=== PATIENT | male | born 1985 | race Caucasian/White ===

== ENCOUNTER 2016-12-12 18:10 | Emergency (ER) | payer MEDICAID ==
[~2016-12-12] VITALS: Ht 147.3 cm; Wt 49.9 kg
[~2016-12-12 18:10] MED LIST: AMOXICILLIN PEG; AMOXICILLIN PO; AMPICILLIN1 GM IV; AUGMENTIN 400 M50 ML PO; AUGMENTIN 875875 MG PEG; BACITRACIN 500U30 GM OPH; CEFTRIAXON2 GM/50 ML IV; DOXYCYCLINE HY100 M5 PO; DUONEB 3 MG/3 ML3 M1 NEB; FAMOTIDINE20 MG PO; FIBERSOURCE H1000 ML PEG; FLUCONAZOL GT; GLUCTESTSTRIP MC; INSULIN PEN NE1 EAC1 MC; JEVITY PEG; KEFLEX250 MG/5 M PO; LOPRESSOR50 M1 PEG; LOPRESSOR50 MG PO; NKHM; NOVOLOG FLEX100 U/ML SC; NYSTATIN 1 ML1 ML PEG; PROTONIX20 MG IV; TYLENOL 10320 MG/10 PEG; TYLENOL160 MG/5 M; VANCOMYCIN HYD750 MG IV; VENTOLIN 02.5 MG/3 M INH; ZINC OXIDE OINT1 OZ T; [UNRECOGNIZED DRUG - OTHER] PO; [UNRECOGNIZED DRUG - SUPPLY] MC
[2016-12-12 19:04] LABS: BASO % 0.5 % (0.0-1.0); EOS # 0.1 10*3/uL (0.0-0.4); EOS % 1.1 % (1.0-4.0); HEMATOCRIT 46.8 % (42.0-52.0); HEMOGLOBIN 15.1 g/dl (14.0-18.0); LYMPH # 3.2 10*3/uL (1.3-4.4); LYMPH % 36.5 % (27.0-41.0); MEAN CELL VOLUME 87.2 fl (80.0-94.0); MEAN CORPUSCULAR HGB 28.1 pg (27.0-31.0); MEAN CORPUSCULAR HGB CONC 32.3 g/dl (33.0-37.0); MEAN PLATELET VOLUME 9.8 fl (9.6-12.3); MONO # 0.8 10*3/uL (0.1-1.0); MONO % 9.3 % (3.0-9.0); NEUT # 4.6 10*3/uL (2.3-7.9); NEUT % 52.3 % (47.0-73.0); PLATELET COUNT AUTOMATED 325 10*3/uL (130-400); RED BLOOD COUNT 5.37 10*6/uL (4.50-5.90); WHITE BLOOD COUNT 8.7 10*3/uL (4.8-10.8)
[2016-12-12 19:07] VITALS: BP 136/76
[2016-12-12 19:25] LABS: ALBUMIN 4.4 gm/dl (3.1-4.5); ALKALINE PHOSPHATASE 161 U/L (45-117); BILIRUBIN, TOTAL 0.5 mg/dl (0.2-1.0); BUN 15 mg/dl (7-24); CARBON DIOXIDE 31 mmol/L (21-32); CHLORIDE 99 mmol/L (98-107); EST GLOM FILT AFRICAN AMERICAN > 60 ml/min; GLUCOSE 81 mg/dL (65-99); POTASSIUM 3.9 mmol/L (3.5-5.1); SGOT/AST 28 IU/L (3-35); SGPT/ALT 48 U/L (12-78); SODIUM 139 mmol/L (136-145); TOTAL PROTEIN 9.7 gm/dL (6.4-8.2)
[2016-12-12] MEDS ORDERED: BACTROBAN CREAM15 GM PO (20:35)
[2016-12-12] MEDS ORDERED: KENALOG 0.025%15 GM T (20:35)
== END 2016-12-12 20:47 | disposition home or self-care (01) ==
LOC: ED 18:10
PROVIDERS: Physician Assistant
DX: Z43.1 Encounter for attention to gastrostomy (principal)

== ENCOUNTER 2017-01-31 16:10 | Inpatient (IN) | payer MEDICAID ==
[~2017-01-31] VITALS: Ht 134.6 cm; Wt 34.6 kg
--- NOTE | ~2017-01-31 | CON ---
[place], [place] REPORT OF CONSULTATION NAME: DAJA MOORE JR [facility] #: [id number] UNIT #: [id number] ROOM: 501 DOCTOR: ANDRE CARRERA MD BIRTHDATE: [birth year] DOS: HISTORY OF PRESENT ILLNESS: This is a 31-year-old patient who presented with multiple readmissions and dependency on the PEG tube. Apparently, his PEG tube has been malfunctioned and leaking and non-infusing and I have been asked for assessment of the above. The patient was admitted through the Emergency Room. A panel of blood work was done and no acute pathology was found. White blood cell was 9, H and H was 15 and 49. Differential within normal limit. Comprehensive metabolic panel, liver function test normal. Electrolytes balanced. CBC differential, no compromise. His B12 was normal. Alkaline phosphatase is slightly elevated at 172. PAST MEDICAL HISTORY: History of advanced cerebral palsy, neurogenic dysphagia, PEG tube dependency, status post previous PEG, status post malfunctioning PEG and repeated exchange. Past medical history associated with diabetes mellitus, , fatty liver, hypertension, bedridden, quadriplegic, positioned. PAST SURGICAL HISTORY: Status post esophageal surgery, details not known; PEG tube; history of podiatric surgeries. SOCIAL HISTORY: Nonsmoker, nonalcohol consumer. FAMILY HISTORY: Noncontributory. ALLERGIES: No known. MEDICATIONS: Medication list reviewed. REVIEW OF SYSTEMS: Cannot be obtained from him due to the cognitive incapability. PHYSICAL EXAMINATION: GENERAL: positioned in general with general waste of musculoskeleton status, lots of muscle wasting. HEENT: Otherwise unremarkable for dental hygiene. NECK: Supple. No thyromegaly. CHEST: Symmetric anatomy, kyphotic. HEART: Normal sinus rhythm. No gallop, no murmur. ABDOMEN: Soft, flat and PEG tube is displaced. Bowel sounds present. EXTREMITIES: Flexed and muscle wasting in thigh and calf and in general entire body is noticed. NEUROLOGIC: Alert and disoriented. LABORATORY DATA: Labs reviewed. Records reviewed at this stage. IMPRESSION: Malfunctioning PEG tube, cerebral palsy, neurogenic dysphagia, bedridden status, otherwise as identified in paragraph past medical and surgical history. At this stage, anterior abdominal wall aseptically was prepared. Existing PEG tube was deflated and removed and a HIRAL 2, size 22 was introduced into the existing ostomy inflated and secured and the patient tolerated the [place], [place] REPORT OF CONSULTATION NAME: DAJA MOORE JR [place] UNIT #: [id number] ROOM: [facility] DOCTOR: DEBI GARRETT,ANDRE BIRTHDATE: [birth year] procedure well, ready for utilization for medications and feedings. ANDRE CARRERA MD CM:CONSTR:REPORT OF CONSULTATION 1135 02/02/17 0046 interface
[~2017-01-31 16:10] MED LIST changes: +BACTROBAN CREAM15 GM PO; +KENALOG 0.025%15 GM T
[2017-01-31 16:25] VITALS: BP 118/60
[2017-01-31 17:40] LABS: BASO % 0.2 % (0.0-1.0); EOS # 0.1 10*3/uL (0.0-0.4); EOS % 0.6 % (1.0-4.0); HEMATOCRIT 49.5 % (42.0-52.0); HEMOGLOBIN 15.9 g/dl (14.0-18.0); LYMPH # 2.2 10*3/uL (1.3-4.4); LYMPH % 23.6 % (27.0-41.0); MEAN CELL VOLUME 88.2 fl (80.0-94.0); MEAN CORPUSCULAR HGB 28.3 pg (27.0-31.0); MEAN CORPUSCULAR HGB CONC 32.1 g/dl (33.0-37.0); MEAN PLATELET VOLUME 9.7 fl (9.6-12.3); MONO # 0.8 10*3/uL (0.1-1.0); MONO % 8.5 % (3.0-9.0); NEUT # 6.3 10*3/uL (2.3-7.9); NEUT % 66.9 % (47.0-73.0); PLATELET COUNT AUTOMATED 297 10*3/uL (130-400); RED BLOOD COUNT 5.61 10*6/uL (4.50-5.90); RED CELL DISTRI WIDTH 15.4 % (0-14.5); WHITE BLOOD COUNT 9.4 10*3/uL (4.8-10.8)
[2017-01-31 17:57] LABS: ALBUMIN 4.6 gm/dl (3.1-4.5); ALKALINE PHOSPHATASE 170 U/L (45-117); BILIRUBIN, TOTAL 0.7 mg/dl (0.2-1.0); BUN 16 mg/dl (7-24); CARBON DIOXIDE 31 mmol/L (21-32); CHLORIDE 101 mmol/L (98-107); EST GLOM FILT AFRICAN AMERICAN > 60 ml/min; GLUCOSE 80 mg/dL (65-99); POTASSIUM 3.9 mmol/L (3.5-5.1); SGOT/AST 30 IU/L (3-35); SGPT/ALT 54 U/L (12-78); SODIUM 139 mmol/L (136-145); TOTAL PROTEIN 9.9 gm/dL (6.4-8.2)
[2017-01-31 20:00] VITALS: BP 130/87
[2017-01-31 20:25] VITALS: BP 130/87
[2017-02-01] VITALS: BP 119/61
[2017-02-01 07:09] LABS: BASO % 0.5 % (0.0-1.0); EOS % 0.3 % (1.0-4.0); HEMATOCRIT 47.6 % (42.0-52.0); HEMOGLOBIN 15.6 g/dl (14.0-18.0); LYMPH # 2.1 10*3/uL (1.3-4.4); LYMPH % 33.3 % (27.0-41.0); MEAN CORPUSCULAR HGB 28.8 pg (27.0-31.0); MEAN CORPUSCULAR HGB CONC 32.8 g/dl (33.0-37.0); MONO # 0.5 10*3/uL (0.1-1.0); MONO % 7.1 % (3.0-9.0); NEUT # 3.7 10*3/uL (2.3-7.9); NEUT % 58.6 % (47.0-73.0); PLATELET COUNT AUTOMATED 303 10*3/uL (130-400); RED BLOOD COUNT 5.41 10*6/uL (4.50-5.90); RED CELL DISTRI WIDTH 15.8 % (0-14.5); WHITE BLOOD COUNT 6.3 10*3/uL (4.8-10.8)
[2017-02-01 07:27] LABS: PROTHROMBIN TIME 10.7 SECONDS (9.0-12.4)
[2017-02-01 07:33] LABS: ALBUMIN 4.5 gm/dl (3.1-4.5); ALKALINE PHOSPHATASE 172 U/L (45-117); BILIRUBIN, TOTAL 0.9 mg/dl (0.2-1.0); BUN 16 mg/dl (7-24); CARBON DIOXIDE 28 mmol/L (21-32); CHLORIDE 102 mmol/L (98-107); EST GLOM FILT AFRICAN AMERICAN > 60 ml/min; GLUCOSE 86 mg/dL (65-99); MAGNESIUM 2.6 mg/dL (1.5-2.1); PHOSPHOROUS 3.2 mg/dL (2.5-4.9); POTASSIUM 3.9 mmol/L (3.5-5.1); SGOT/AST 33 IU/L (3-35); SGPT/ALT 57 U/L (12-78); SODIUM 141 mmol/L (136-145); TOTAL PROTEIN 9.9 gm/dL (6.4-8.2)
[2017-02-01 08:00] VITALS: BP 121/74
[2017-02-01 08:24] LABS: FOLIC ACID > 24.00 ng/mL (>5.38)
[2017-02-01 08:46] LABS: VITAMIN D, 25-HYDROXY 24.7 ng/mL (30-100)
[2017-02-01] MEDS ORDERED: Lopressor25 MG PO (10:12)
[2017-02-01] MEDS ORDERED: PEPCID20 MG PO (10:12)
[2017-02-01 10:57] VITALS: BP 132/94
[2017-02-01 12:00] VITALS: BP 133/86
[2017-02-01] MEDS ORDERED: VITAMIN D1000 IU PEG (14:09)
== END 2017-02-01 15:09 | disposition home health service (06) | DRG 395 ==
LOC: ED 16:10 → 5E 17:51 → EDHOLD 17:51 → 5E 18:33
PROVIDERS: Internal Medicine; Nurse Practitioner Family
PROC: 0D20XUZ Change Feeding Device in Upper Intestinal Tract, External Approach (ICD-10-PCS; principal; 2017-01-31)
DX: K94.23 Gastrostomy malfunction (principal); E10.8 Type 1 diabetes mellitus with unspecified complications; G80.8 Other cerebral palsy; K21.9 Gastro-esophageal reflux disease without esophagitis; I10 Essential (primary) hypertension; E55.9 Vitamin D deficiency, unspecified; R13.19 Other dysphagia; Z79.899 Other long term (current) drug therapy

== ENCOUNTER → 2017-07-28 | Day surgery (SDC) | payer MEDICAID ==
[~2017-07-28] VITALS: Wt 36.3 kg
[~2017-07-28] MED LIST changes: +Lopressor25 MG PO; +NOVOLOG FL100 UNIT/1 SQ; +PEPCID20 MG PO; +VITAMIN D1000 IU PEG
--- NOTE | ~2017-07-28 | CON ---
[place], [place] REPORT OF CONSULTATION NAME: DAJA MOORE JR [facility] #: [id number] UNIT #: [id number] ROOM: DOCTOR: ANDRE CARRERA MD BIRTHDATE: [birth year] DOS: 07/28/2017 HISTORY OF PRESENT ILLNESS: This is a 31-year-old old patient who has presented for malfunctioning and broken PEG tube. The patient known with quadriplegia, bedridden and mental retardation. The patient has been taken care of by family at home. The patient with advanced cerebral palsy. The patient is dependent on his feeding tube and requires exchange of the tube. PAST MEDICAL HISTORY: Advanced cerebral palsy, dextroscoliosis, diabetes mellitus, cholelithiasis, cellulitis of the anterior abdominal wall, fatty liver of nonalcoholic type, hypertension, history of meningitis, quadriplegia. PAST SURGICAL HISTORY: Gastrostomy and multiple other surgeries, lower back surgeries and spine surgeries, leg surgeries. SOCIAL HISTORY: Nonsmoker, nonalcohol consumer. FAMILY HISTORY: Supportive family. ALLERGIES: To no known medications. MEDICATIONS: Medication list has been reviewed. REVIEW OF SYSTEMS: Cannot be obtained from the patient due to the cognitive incapability. PHYSICAL EXAMINATION: GENERAL: Deformed musculoskeletal status. HEENT: Benign for his age and category of the disease. Mouth dry. NECK: Supple. LUNGS: Decreased airway entry bilaterally. No wheeze. HEART: Normal sinus rhythm, no gallop, no murmur. CHEST: Entirely is deformed with scoliosis. ABDOMEN: Protuberant due to the anatomical variation. Cellulitis, abdominal wall was identified. A malfunctioning PEG tube was identified. EXTREMITIES: Deformed extremities, upper and lower and musculoskeletal deformity in addition to muscle wasting, bedridden status. NEUROLOGIC: Appears to be alert, not oriented. Broken malfunctioning PEG tube at this stage, anterior abdominal wall was aseptically prepped and existing tube was percutaneously removed and HIRAL size 22 was introduced in the same ostomy site, inflated with 15 mL of normal saline and position was verified clinically, anchors from outside secured, additional straps were added and case discussed with the mother. Then the site was dressed with Neosporin ointment. The patient tolerated procedure well. IMPRESSION: Malfunctioning PEG tube, status post removal and replacement; cerebral palsy of advanced degree; bedridden; deformed musculoskeletal status; and other adjunctive diagnoses as identified above. [place], [place] REPORT OF CONSULTATION NAME: DAJA MOORE JR UNIT #: [id number] ROOM: DOCTOR: DEBI GARRETT,ANDRE BIRTHDATE: [birth year] PLAN AND DISCUSSION: Resumption of utilization of new PEG tube for meds and food feeding. ANDRE CARRERA MD CM:CONSTR:REPORT OF CONSULTATION 1009 07/29/17 0318 interface
--- NOTE | 2017-07-28 10:10 | NUR ---
PATIENT PRESENTED TO OPS DR CARRERA AND MOTHER AT BEDSIDE. MALFUNCTIONING PEG TUBE NOTED CONSENT SIGNSED AND INFORMED TO MOTHER BY Catarina CARRERA. PATIENT PREPPED WITH BETADINE AND TUBE EXTRACTED. EXCHANGE COMPLETED. TOLERATED WELL.
== END | disposition home or self-care (01) ==
LOC: SDC 07-27 13:15
DX: K94.23 Gastrostomy malfunction (principal); F79 Unspecified intellectual disabilities; G80.8 Other cerebral palsy; E11.9 Type 2 diabetes mellitus without complications; K21.9 Gastro-esophageal reflux disease without esophagitis; I10 Essential (primary) hypertension; Z98.890 Other specified postprocedural states; Z79.899 Other long term (current) drug therapy; Z79.4 Long term (current) use of insulin

== ENCOUNTER 2017-08-24 14:56 | Emergency (ER) | payer MEDICAID ==
[2017-08-24 14:56] VITALS: BP 102/79
== END 2017-08-24 15:44 | disposition home or self-care (01) ==
LOC: ED 14:56
DX: T81.89XA Other complications of procedures, not elsewhere classified, initial encounter (principal); K94.22 Gastrostomy infection; Z98.890 Other specified postprocedural states; Z79.899 Other long term (current) drug therapy; Z79.4 Long term (current) use of insulin; Y92.9 Unspecified place or not applicable

== ENCOUNTER → 2018-06-05 | Outpatient (CLI) | payer MEDICAID ==
[2018-06-05 11:28] LABS: BASO # 0.1 10*3/uL (0.0-0.1); BASO % 0.7 % (0.0-1.0); EOS # 0.1 10*3/uL (0.0-0.4); EOS % 1.8 % (1.0-4.0); HEMATOCRIT 54.6 % (42.0-52.0); HEMOGLOBIN 17.5 g/dl (14.0-18.0); LYMPH # 2.4 10*3/uL (1.3-4.4); LYMPH % 32.6 % (27.0-41.0); MEAN CELL VOLUME 91.5 fl (80.0-94.0); MEAN CORPUSCULAR HGB 29.3 pg (27.0-31.0); MEAN CORPUSCULAR HGB CONC 32.1 g/dl (33.0-37.0); MEAN PLATELET VOLUME 10.3 fl (9.6-12.3); MONO # 0.5 10*3/uL (0.1-1.0); MONO % 6.3 % (3.0-9.0); NEUT # 4.3 10*3/uL (2.3-7.9); NEUT % 58.3 % (47.0-73.0); PLATELET COUNT AUTOMATED 260 10*3/uL (130-400); RED BLOOD COUNT 5.97 10*6/uL (4.50-5.90); RED CELL DISTRI WIDTH 16.5 % (0-14.5); WHITE BLOOD COUNT 7.3 10*3/uL (4.8-10.8)
[2018-06-05 11:45] LABS: ALKALINE PHOSPHATASE 144 U/L (45-117); BUN 15 mg/dl (7-24); CHLORIDE 99 mmol/L (98-107); CREATININE 0.47 mg/dL (0.70-1.30); POTASSIUM 4.1 mmol/L (3.5-5.1); SGOT/AST 32 IU/L (3-35); SGPT/ALT 71 U/L (12-78); SODIUM 137 mmol/L (136-145)
== END | disposition home or self-care (01) ==
LOC: LAB 10:37
PROVIDERS: Family Medicine
DX: G80.0 Spastic quadriplegic cerebral palsy (principal); Q78.0 Osteogenesis imperfecta; Z93.1 Gastrostomy status

== ENCOUNTER 2018-07-21 09:13 | Emergency (ER) | payer MEDICAID ==
[2018-07-21 09:20] VITALS: BP 113/59
== END 2018-07-21 12:36 | disposition home or self-care (01) ==
LOC: ED 09:13
DX: K94.23 Gastrostomy malfunction (principal); E11.9 Type 2 diabetes mellitus without complications; K21.9 Gastro-esophageal reflux disease without esophagitis; I10 Essential (primary) hypertension; G82.50 Quadriplegia, unspecified; Z79.899 Other long term (current) drug therapy

== ENCOUNTER 2018-11-04 16:28 | Emergency (ER) | payer MEDICAID ==
[2018-11-04 16:30] VITALS: BP 136/79
[2018-11-11] MEDS ORDERED: NYSTOP60 GM T (09:36)
[2018-11-11] MEDS ORDERED: FLUCONAZOLE100 MG PO (09:36)
[2018-11-11] MEDS ORDERED: Bactroban Oint22 GM T (09:36)
== END 2018-11-04 19:55 | disposition home or self-care (01) ==
LOC: ED 16:28
DX: T85.528A Displacement of other gastrointestinal prosthetic devices, implants and grafts, initial encounter (principal); K21.9 Gastro-esophageal reflux disease without esophagitis; I10 Essential (primary) hypertension; E11.9 Type 2 diabetes mellitus without complications

== ENCOUNTER 2018-12-26 12:52 | Inpatient (IN) | payer MEDICAID ==
[~2018-12-26] VITALS: Ht 144.7 cm; Wt 36.3 kg
[~2018-12-26 12:52] MED LIST changes: +Bactroban Oint22 GM T; +FLUCONAZOLE100 MG PO; +NYSTOP60 GM T
[2018-12-26 12:57] VITALS: BP 127/75
[2018-12-26 14:45] LABS: BASO # 0.1 10*3/uL (0.0-0.1); BASO % 0.5 % (0.0-1.0); EOS # 0.1 10*3/uL (0.0-0.4); EOS % 0.5 % (1.0-4.0); HEMATOCRIT 40.4 % (42.0-52.0); HEMOGLOBIN 12.7 g/dl (14.0-18.0); LYMPH # 1.4 10*3/uL (1.3-4.4); LYMPH % 13.2 % (27.0-41.0); MEAN CELL VOLUME 91.2 fl (80.0-94.0); MEAN CORPUSCULAR HGB 28.7 pg (27.0-31.0); MEAN CORPUSCULAR HGB CONC 31.4 g/dl (33.0-37.0); MEAN PLATELET VOLUME 9.9 fl (9.6-12.3); MONO # 1.1 10*3/uL (0.1-1.0); NEUT # 8.2 10*3/uL (2.3-7.9); NEUT % 75.3 % (47.0-73.0); PLATELET COUNT AUTOMATED 260 10*3/uL (130-400); RED BLOOD COUNT 4.43 10*6/uL (4.50-5.90); RED CELL DISTRI WIDTH 15.9 % (0-14.5); WHITE BLOOD COUNT 10.9 10*3/uL (4.8-10.8)
[2018-12-26 16:50] VITALS: BP 113/68
[2018-12-26 17:03] VITALS: BP 113/68
[2018-12-26 18:54] LABS: ALBUMIN 4.1 gm/dl (3.1-4.5); ALKALINE PHOSPHATASE 121 U/L (45-117); BUN 12 mg/dl (7-24); CHLORIDE 100 mmol/L (98-107); CREATININE 0.46 mg/dL (0.70-1.30); POTASSIUM 4.1 mmol/L (3.5-5.1); SGOT/AST 30 IU/L (3-35); SGPT/ALT 46 U/L (12-78); SODIUM 139 mmol/L (136-145)
--- NOTE | 2018-12-26 18:55 | NUR ---
PATIENT TAKEN TO 5TH FLOOR AT THIS TIME BEDSIDE REPORT GIVEN TO VINCE SANTO.
--- NOTE | 2018-12-26 19:00 | NUR ---
A 33, admitted to 5E, under the services of AYAZ Abdi DO with a diagnosis of HYPOXIA, PNEUMONIA. Chief complaint is LOW P02. Patient arrived via bed from ER. Monitor applied. Initial assessment completed. Vital signs taken and recorded. AYAZ ABDI DO notified of admission to the unit. Orders received. See assessment for past medical history, medications and allergies. Patient and/or family oriented to unit. [address] visitation policy reviewed. Clothing/patient valuable form completed. SKIN INTACT WTIH NO WOUNDS IAM MOODY
[2018-12-26 19:03] LABS: ABG BASE EXCESS 4.7 mmol/L (-2.0-2.0); ABG HCO3 29.6 mmol/l (22-26); ABG O2 SATURATION 92.2 % (95-97); ARTERIAL BLOOD GAS PCO2 47.1 mmHg (35-45); ARTERIAL BLOOD GAS PH 7.414 (7.35-7.45); ARTERIAL BLOOD GAS PO2 62.2 mmHg (80-90)
--- NOTE | 2018-12-26 19:37 | NUR ---
PER PTS MOTHER THE PT IS STRICTLY NPO. PT IS TO HAVE 4 CANS OF GLUCERNA DAILY VIA PUMP AT 40 ML/HR. PTS HOME MEDS ALSO VERIFIED WITH MOTHER. DR VELAZQUEZ INFORMED.
[2018-12-26 20:00] VITALS: BP 110/67
[2018-12-27] VITALS: BP 111/60
--- NOTE | 2018-12-27 00:52 | NUR ---
PT IS AWAKE AND RESTLESS AT THIS TIME. PEG PLACEMENT CHECKED AND FEED STARTED AT 40/HR.
--- NOTE | 2018-12-27 07:33 | NUR ---
24 HOUR CHART CHECK COMPLETED.
[2018-12-27 07:40] LABS: BASO % 0.4 % (0.0-1.0); EOS # 0.1 10*3/uL (0.0-0.4); EOS % 1.3 % (1.0-4.0); HEMATOCRIT 41.6 % (42.0-52.0); HEMOGLOBIN 12.4 g/dl (14.0-18.0); LYMPH # 1.3 10*3/uL (1.3-4.4); LYMPH % 19.3 % (27.0-41.0); MEAN CELL VOLUME 93.3 fl (80.0-94.0); MEAN CORPUSCULAR HGB 27.8 pg (27.0-31.0); MEAN CORPUSCULAR HGB CONC 29.8 g/dl (33.0-37.0); MEAN PLATELET VOLUME 10.1 fl (9.6-12.3); MONO # 0.8 10*3/uL (0.1-1.0); MONO % 12.1 % (3.0-9.0); NEUT # 4.5 10*3/uL (2.3-7.9); NEUT % 66.3 % (47.0-73.0); PLATELET COUNT AUTOMATED 251 10*3/uL (130-400); RED BLOOD COUNT 4.46 10*6/uL (4.50-5.90); RED CELL DISTRI WIDTH 15.9 % (0-14.5); WHITE BLOOD COUNT 6.8 10*3/uL (4.8-10.8)
[2018-12-27 07:49] LABS: BUN 10 mg/dl (7-24); CHLORIDE 104 mmol/L (98-107); CREATININE 0.47 mg/dL (0.70-1.30); POTASSIUM 3.8 mmol/L (3.5-5.1); SODIUM 143 mmol/L (136-145)
[2018-12-27 08:00] VITALS: BP 112/78
--- NOTE | 2018-12-27 10:49 | NUR ---
Coke Loader in to talk to patient. Patient states lives at HOME with MOTHER. There are NO steps in the home. Physician: JOSE ART Pharmacy: [facility] Home health services: [facility] Patient's level of ADLs: BEDFAST Patient has working utilities: YES DME: HOSPITAL BED, FEEDING TUBE Follow-up physician's appointment after d/c: WILL BE MADE BY HOSITALIST NURSE DIRECTOR ON DISCHARGE Does patient want to access PORTAL?: N Discharge plan PT LIVES AT HOME WITH HIS MOTHER. MOTHER STATES SHE HAS EVERYTHING SHE NEEDS AT HOME FOR HIS CARE. WILL CONTINUE FOLLOW. . MELANIE GUAMAN
[2018-12-27 12:00] VITALS: BP 100/49
[2018-12-27 16:00] VITALS: BP 106/60
--- NOTE | 2018-12-27 19:10 | NUR ---
PT IS ASLEEP IN BED AT THIS TIME. NO S/S OF DISTRESS NOTED. RESPIRATIONS ARE EASY AND NONLABORED. BED ALARM ON. WILL CONTINUE TO MONITOR.
--- NOTE | 2018-12-27 19:28 | NUR ---
24 HR CHART CHECK COMPLETE.
[2018-12-27 20:00] VITALS: BP 118/78
--- NOTE | 2018-12-27 22:22 | NUR ---
ATTEMPTED TO CALL THE HOSPITALIST WITH CRITICAL BLOOD CULTURE. NO ANSWER WILL RETRY
[2018-12-28] VITALS: BP 122/65
[2018-12-28 08:00] VITALS: BP 111/77; BP 112/72
--- NOTE | 2018-12-28 11:30 | NUR ---
Shift chart check completed.
--- NOTE | 2018-12-28 11:55 | NUR ---
PT WILL RETURN HOME WITH HIS MOTHER ON DISCHARGE. SHE STATES SHE HAS ALL THE EQUIPMENT AND SERVICES SHE NEEDS.
[2018-12-28 12:00] VITALS: BP 134/77
[2018-12-28 16:00] VITALS: BP 135/75
--- NOTE | 2018-12-28 16:11 | NUR ---
CALLED DR BERMEO WITH NEW CONSULT. HE STATES THAT HE DOES NOT DO NOSE ABCESSES. WILL FOLLOW UP WITH ATTENDING.
--- NOTE | 2018-12-28 16:14 | NUR ---
DR DEL CID CALLED AND MADE AWARE OF DR BERMEO'S CONSULT AND THAT HE DOES NOT DO NOSE ABCESS. DR DEL CID WILL CALL BACK.
--- NOTE | 2018-12-28 16:50 | NUR ---
PHYSICAL THERAPY Nursing screen received. Chart review completed. Patient with Cerebral Palsy and quadriplegia. Recommend daily ROM all 4 extremities via nursing with daily nursing care and jyoti lift to chair via nursing prn. No PT skills/needs at this time. Thank you. Mickie Cardoza,PT
--- NOTE | 2018-12-28 18:08 | NUR ---
DR ALONSO'S ANSWERING SERVICE CALLED WITH NEW CONSULT.
[2018-12-28 20:00] VITALS: BP 142/79
[2018-12-29] VITALS: BP 133/68
[2018-12-29 05:37] LABS: BUN 11 mg/dl (7-24); CHLORIDE 103 mmol/L (98-107); CREATININE 0.49 mg/dL (0.70-1.30); POTASSIUM 4.3 mmol/L (3.5-5.1); SODIUM 138 mmol/L (136-145)
[2018-12-29 06:35] LABS: HEMATOCRIT 39.1 % (42.0-52.0); HEMOGLOBIN 12.6 g/dl (14.0-18.0); MEAN CORPUSCULAR HGB 28.3 pg (27.0-31.0); MEAN CORPUSCULAR HGB CONC 32.2 g/dl (33.0-37.0); MEAN PLATELET VOLUME 10.8 fl (9.6-12.3); NUCLEATED RED BLOOD CELL 0.4 % (0.0-0.0); PLATELET COUNT AUTOMATED 277 10*3/uL (130-400); RED BLOOD COUNT 4.45 10*6/uL (4.50-5.90); RED CELL DISTRI WIDTH 15.5 % (0-14.5)
[2018-12-29 06:42] LABS: MEAN CELL VOLUME 87.9 fl (80.0-94.0)
[2018-12-29 07:00] LABS: ATYPICAL LYMPHS 1 % (0-0); BURR CELLS FEW; PLASMA CELL 1 % (0-0); PLATELET SUFFICIENCY NORMAL (NORMAL); POLYCHROMASIA SLIGHT; TOTAL CELLS COUNTED 100 #CELLS
[2018-12-29 08:00] VITALS: BP 154/68
[2018-12-29 12:00] VITALS: BP 121/62
[2018-12-29 12:39] LABS: BILIRUBIN NEGATIVE (NEGATIVE); BLOOD NEGATIVE (NEGATIVE); CLARITY CLEAR (CLEAR); COLOR YELLOW (YELLOW); GLUCOSE NEGATIVE (NEGATIVE); KETONE NEGATIVE (NEGATIVE); LEUKO ESTERASE TRACE (NEGATIVE); NITRITE NEGATIVE (NEGATIVE); PH 6.5 (5.0-9.0); SPECIFIC GRAVITY <= 1.005 (1.005-1.030); UROBILINOGEN 0.2 E.U./dl (0.2-1.0)
[2018-12-29 12:48] LABS: BACTERIA TRACE
[2018-12-29 16:00] VITALS: BP 104/58
[2018-12-29 20:00] VITALS: BP 118/68; BP 120/68
[2018-12-30] VITALS: BP 131/73
--- NOTE | 2018-12-30 01:39 | NUR ---
24 HR chart check completed.
[2018-12-30 06:36] LABS: HEMATOCRIT 42.8 % (42.0-52.0); HEMOGLOBIN 13.5 g/dl (14.0-18.0); MEAN CELL VOLUME 89.9 fl (80.0-94.0); MEAN CORPUSCULAR HGB 28.4 pg (27.0-31.0); MEAN CORPUSCULAR HGB CONC 31.5 g/dl (33.0-37.0); MEAN PLATELET VOLUME 9.9 fl (9.6-12.3); NUCLEATED RED BLOOD CELL 0.6 % (0.0-0.0); PLATELET COUNT AUTOMATED 304 10*3/uL (130-400); RED BLOOD COUNT 4.76 10*6/uL (4.50-5.90); RED CELL DISTRI WIDTH 15.5 % (0-14.5); WHITE BLOOD COUNT 6.5 10*3/uL (4.8-10.8)
[2018-12-30 06:46] LABS: BASOPHILS 1 % (0-1); PLASMA CELL 1 % (0-0); PLATELET SUFFICIENCY NORMAL (NORMAL); POLYCHROMASIA SLIGHT; TOTAL CELLS COUNTED 100 #CELLS
[2018-12-30 08:00] VITALS: BP 142/88
[2018-12-30 12:00] VITALS: BP 127/71
--- NOTE | 2018-12-30 14:50 | NUR ---
AFTER MULTIPLE FAILED IV ATTEMPTS, NOTIFIED THAT PATIENT HAS BEEN UNABLE TO RECEIVE NOON DOSE OF VANCO DUE TO NO IV SITE. ICU NURSE ATTEMPTED WITH ULTRASOUND MACHINE AND WAS UNSUCCESSFUL WELL. PAGED INFECTIOUS DISEASE TO SEE IF THERE IS ANY WAY ATB CAN BE CHANGED. IN HOSPITAL AND STATES SHE WILL LOOK INTO THE PT SOON.
[2018-12-30 16:00] VITALS: BP 112/69
--- NOTE | 2018-12-30 16:02 | NUR ---
spoke with ; no antibiotic needed at this time. per , blood culture results appears to be a contaminate. ok to leave IV out at this time.
--- NOTE | 2018-12-30 16:58 | NUR ---
UNABLE TO GET A HOLD OF FAMILY UP UNTIL THIS POINT. ONLY ONE PHONE NUMBER LISTED AND VOICEMAIL IS FULL.
--- NOTE | 2018-12-30 18:50 | NUR ---
NOTIFIED THAT PATIENT IS STILL HERE AND WE ARE STILL UNABLE TO REACH FAMILY.
[2018-12-30 20:00] VITALS: BP 113/73; BP 128/56
--- NOTE | 2018-12-30 22:08 | NUR ---
PATIENT'S MOTHER CALLED FOR DISCHARGE INSTRUCTIONS. MOTHER MADE THIS RN AWARE THAT THE PATIENT WOULD NEED AMBULANCE TRANSPORTATION TO GO HOME TOMORROW. DISCHARGE MEDICATION INFORMATION GIVEN TO MOTHER. ELECTRONICS COMMODITY MANAGER MADE AWARE THAT PATIENT WOULD NEED AMBULANCE TRANSPORTATION HOME. MOTHER WILL CALL TOMORROW MORNING ONCE POWER IS TURNED ON TO PATIENT'S HOME.
[2018-12-31] VITALS: BP 118/72
--- NOTE | 2018-12-31 02:54 | NUR ---
CHART CHECK COMPLETED.
--- NOTE | 2018-12-31 06:35 | NUR ---
SPOKE WITH DR. TORRES ABOUT PATIENTS CT SCAN OF FACE DUE TO ABSCESS/LESION NOTED TO RIGHT NOSE CLOSE TO THE PATIENT EYE. NOTIFIED HER THAT PATIENT IS GOING TO BE DISCHARGED TODAY, BUT THAT THE CT RECOMMENDED THAT THE PATIENT FOLLOW UP WITH OPHTHALMOLOGY FOR LESION. THIS NURSE ASKED IF IT WOULD BE OK TO INCLUDE THIS IN PATIENTS DISCHARGE PAPERWORK. DR. TORRES STATED THAT WOULD BE OK
[2018-12-31 06:57] LABS: HEMATOCRIT 44.3 % (42.0-52.0); HEMOGLOBIN 13.4 g/dl (14.0-18.0); MEAN CELL VOLUME 91.3 fl (80.0-94.0); MEAN CORPUSCULAR HGB 27.6 pg (27.0-31.0); MEAN CORPUSCULAR HGB CONC 30.2 g/dl (33.0-37.0); MEAN PLATELET VOLUME 10.1 fl (9.6-12.3); NUCLEATED RED BLOOD CELL 0.4 % (0.0-0.0); PLATELET COUNT AUTOMATED 309 10*3/uL (130-400); RED BLOOD COUNT 4.85 10*6/uL (4.50-5.90); RED CELL DISTRI WIDTH 15.7 % (0-14.5)
[2018-12-31 07:17] LABS: BUN 18 mg/dl (7-24); CHLORIDE 100 mmol/L (98-107); POTASSIUM 3.9 mmol/L (3.5-5.1); SODIUM 140 mmol/L (136-145)
[2018-12-31 07:57] LABS: PLATELET SUFFICIENCY NORMAL (NORMAL); TOTAL CELLS COUNTED 100 #CELLS
[2018-12-31 08:01] VITALS: BP 108/58
--- NOTE | 2018-12-31 11:48 | NUR ---
Patient discharged to home, transportation is scheduled for 1 PM with [employer].
--- NOTE | 2018-12-31 12:26 | NUR ---
Spoke with Otilia, patients mother and reviewed follow up recommendations, appointment with pcp and established directions to patients home.
--- NOTE | 2018-12-31 13:00 | NUR ---
Discharge instructions reviewed with patient/family. Patient receptive and verbalizes understanding. Follow-up care arranged. Written instructions given to patient/family. Patient was wheeled from unit by EMT's. Directions to patients home were given. Patient's belongings were accounted for. KATE ALFONSO J
== END 2018-12-31 13:00 | disposition home or self-care (01) | DRG 393 ==
LOC: ED 12:52 → 5E 17:56 → EDHOLD 17:56 → 5E 18:40
PROVIDERS: Emergency Medicine; Internal Medicine; Student in an Organized Health Care Education/Training Program; ADMIT Internal Medicine
DX: K94.23 Gastrostomy malfunction (principal); J96.01 Acute respiratory failure with hypoxia; G82.50 Quadriplegia, unspecified; J96.02 Acute respiratory failure with hypercapnia; L03.311 Cellulitis of abdominal wall; K94.22 Gastrostomy infection; B95.7 Other staphylococcus as the cause of diseases classified elsewhere; Y83.3 Surgical operation with formation of external stoma as the cause of abnormal reaction of the patient, or of later complication, without mention of misadventure at the time of the procedure; D64.9 Anemia, unspecified; I10 Essential (primary) hypertension; K21.9 Gastro-esophageal reflux disease without esophagitis; M41.80 Other forms of scoliosis, site unspecified; R07.9 Chest pain, unspecified; J34.0 Abscess, furuncle and carbuncle of nose; R53.81 Other malaise; E55.9 Vitamin D deficiency, unspecified; E11.9 Type 2 diabetes mellitus without complications; S01.20XA Unspecified open wound of nose, initial encounter; X58.XXXA Exposure to other specified factors, initial encounter; Y93.89 Activity, other specified; Y92.89 Other specified places as the place of occurrence of the external cause; Y99.8 Other external cause status; Z88.5 Allergy status to narcotic agent; Z82.49 Family history of ischemic heart disease and other diseases of the circulatory system; Z79.899 Other long term (current) drug therapy

== ENCOUNTER 2019-07-11 12:54 | Inpatient (IN) | payer MEDICAID ==
[~2019-07-11] VITALS: Ht 91.4 cm; Wt 39.1 kg
--- NOTE | ~2019-07-11 | EKG ---
[place], [place] ELECTROCARDIOGRAM REPORT NAME: DAJA MOORE JR UNIT #: [id number] ROOM: 410 DOCTOR: ALEKSANDAR DRAFT REPORT BIRTHDATE: [birth year] [facility] Test Date: 2019-07-12 Test Time: 08:31:05 Pat Name: DAJA MOORE Department: Room: 410 1 Gender: M Slope Hoist Operator: Marian Cason : 1985 Requested By: SAHIL PATEL Order Number: [id number] Reading MD: Alisha Quintana MD Measurements Intervals [place] Rate: 88 P: 42 NE: 124 QRS: -14 QRSD: 77 T: 19 QT: 478 QTc: 579 Interpretive Statements Sinus rhythm Prolonged QT interval No previous ECG available for comparison Electronically Signed On 07-14-2019 8:47:37 PST by Alisha Quintana MD CM:EKGRPT:ELECTROCARDIOGRAM REPORT 0847 SAHLI ROBISON DRAFT REPORT SAHIL PATEL DO
--- NOTE | ~2019-07-11 | CON ---
[place], [place] REPORT OF CONSULTATION NAME: DAJA MOORE JR UNIT #: [id number] ROOM: 410 DOCTOR: ANDRE CARRERA MD BIRTHDATE: [birth year] DOS: 07/12/2019 HISTORY OF PRESENT ILLNESS: A 33-year-old patient who has presented with chief complaint of malfunctioning PEG tube. The patient is mentally retardation with deformities of musculoskeletal, bedridden, 24 hours nursing care dependent. The patient comes to the Emergency Room with malfunctioning PEG tube site with cellulitis and drainage. Labs on records was reviewed. CBC differential within normal limit. H and H was 17 and 54. INR 0.9. Comprehensive metabolic panel: GFR greater than 60. Chemistry within normal limits. Bilirubin 0.5, GOT/GPT 39 and 83, alkaline phosphatase 132. Comprehensive metabolic panel all has been recognized. Electrolytes have been recognized. CBC differential readdressed. PAST MEDICAL HISTORY: Gastroesophageal reflux, bedridden, dysphagia, hypertension, quadriplegia, mental retardation, cerebral palsy, musculoskeletal deformity. PAST SURGICAL HISTORY: Status post PEG and podiatric surgery. SOCIAL HISTORY: Nonsmoker, nonalcohol consumer. FAMILY HISTORY: Noncontributory. ALLERGIES: CODEINE. MEDICATIONS: List reviewed. REVIEW OF SYSTEMS: Cannot be communicated with patient's mental status. PHYSICAL EXAMINATION: VITAL SIGNS: Stable. HEENT: Head normocephalic, nontraumatic. Mouth and buccal mucosa benign. Deformity of musculoskeletal. CHEST: Kyphotic, scoliotic, decreased limited air entry. HEART: Normal sinus rhythm. ABDOMEN: Protruding, deformed, PEG tube site with cellulitis, leaking PEG. EXTREMITIES: Deformed and muscle wasting has been noticed. NEUROLOGIC: Alert to pain. The patient with deformed and migrated malfunctioning PEG tube, noninfusing. We are going to take to the operating room and re-exchange. Malfunctioning PEG tube, quadriplegia, cerebral palsy, bedridden. [place], [place] REPORT OF CONSULTATION NAME: DAJA MOORE JR Francisco UNIT #: [id number] ROOM: 410 DOCTOR: ANDRE CARRERA MD BIRTHDATE: [birth year] ANDRE CARRERA MD CM:CONSTR:REPORT OF CONSULTATION 1111 [id number] FRANSICO COBIAN.R
--- NOTE | ~2019-07-11 | O ---
[place], [place] OPERATIVE NOTE [id number] #: [id number] ROOM: 410 DOCTOR: ANDRE CARRERA MD BIRTHDATE: [birth year] DOS: 07/12/2019 GASTROENDOSCOPIC REPORT INDICATIONS: The patient has presented as a bedridden, deformed, cerebral palsy and mental retardation, PEG tube dependent. PROCEDURE: Today's procedure part of investigation is panendoscopy, removal of existing G-tube and replacement with new G-tube. PREMEDICATION: Propofol. SCOPE: Olympus forward-viewing gastroscope Q10 video. REPORT: After putting the patient in left lateral position and application of lubricant to the scope, the scope was introduced. Thereafter, under direct visualization, advanced through the length of esophagus without difficulty. Gastric pouch was entered. Gastritis was seen. Duodenal bulb, second and third part within normal limit. Existing PEG tube under direct visualization withdrawn. New PEG tube, size #24 was replaced and inflated with 15 mL of normal saline. Photographic position documentation was done. Anchors from outside secured, additional straps were added. Site was saturated with Neosporin. Dressing was done. The patient tolerated the procedure well. IMPRESSION: Malfunctioning existing PEG tube, status post removal, replacement with new tube and dressing of the site. PLAN: Resumption of activity. The patient lives with family and zinc oxide is recommended copiously around the PEG site. ANDRE CARRERA MD CM:OPRECORD:OPERATIVE NOTE 1111 13 ANDRE CARRERA MD 07/23/19 1157 interface
[2019-07-11 12:54] VITALS: BP 127/61
[2019-07-11 13:34] LABS: BASO % 0.7 % (0.0-1.0); EOS # 0.1 10*3/uL (0.0-0.4); EOS % 2.4 % (1.0-4.0); HEMATOCRIT 54.6 % (42.0-52.0); HEMOGLOBIN 17.5 g/dl (14.0-18.0); LYMPH # 2.4 10*3/uL (1.3-4.4); LYMPH % 40.2 % (27.0-41.0); MEAN CELL VOLUME 90.8 fl (80.0-94.0); MEAN CORPUSCULAR HGB 29.1 pg (27.0-31.0); MEAN CORPUSCULAR HGB CONC 32.1 g/dl (33.0-37.0); MEAN PLATELET VOLUME 9.8 fl (9.6-12.3); MONO # 0.4 10*3/uL (0.1-1.0); MONO % 6.3 % (3.0-9.0); NEUT # 2.9 10*3/uL (2.3-7.9); NEUT % 49.4 % (47.0-73.0); PLATELET COUNT AUTOMATED 281 10*3/uL (130-400); RED BLOOD COUNT 6.01 10*6/uL (4.50-5.90); RED CELL DISTRI WIDTH 16.5 % (0-14.5); WHITE BLOOD COUNT 5.8 10*3/uL (4.8-10.8)
[2019-07-11 13:47] LABS: ACT PARTIAL THROMBO TIME 22.9 SECONDS (20.0-32.1); INTERNATIONAL NORM RATIO 0.9 (2.0-3.5)
[2019-07-11 13:49] LABS: ALBUMIN 4.8 gm/dl (3.1-4.5); ALKALINE PHOSPHATASE 132 U/L (45-117); BUN 14 mg/dl (7-24); CHLORIDE 101 mmol/L (98-107); CREATININE 0.53 mg/dL (0.70-1.30); LIPASE 181 U/L (73-393); SGOT/AST 39 IU/L (3-35); SGPT/ALT 83 U/L (12-78); SODIUM 137 mmol/L (136-145)
[2019-07-11 14:50] VITALS: BP 136/81
--- NOTE | 2019-07-11 14:50 | NUR ---
Time: 1449 A 33 year old MALE admitted to under services of MOON DAI DO. Pt. arrived via stretcher from ER. Chief complaint: FROM HOME DUE TO CLOGGED PEG TUBE. BOB BEJARANO
[2019-07-11 16:00] VITALS: BP 136/81
--- NOTE | 2019-07-11 19:50 | NUR ---
DR. CARRERA NOTIFIED OF CONSULT. ORDERS RECEIVED TO KEEP PATIENT NPO AFTER MIDNIGHT AND PATIENT WILL GO FOR A PEG EXCHANGE IN THE MORNING.
[2019-07-11 20:00] VITALS: BP 142/93
--- NOTE | 2019-07-11 20:05 | NUR ---
NOTIFIED RESIDENT SIZE MAKER OF PLANS FOR PEG EXCHANGE IN THE MORNING AND D/T PEG MALFUNCTION PATIENT WOULD NOT BE ABLE TO GET HIS LOPRESSOR TONIGHT. BP 142/93. HR 88. NO NEW ORDERS.
--- NOTE | 2019-07-11 20:10 | NUR ---
NOTIFIED RESIDENT BOMB LOADER OF PATIENTS HAND BEING A PURPLE COLOR AND ARM BEING HARD AND COLD. IV FLUIDS STOPPED AND IV SITE REMOVED. ARM BAND REMOVED FROM THAT ARM. DR. DEL CID IN TO ASSESS.
--- NOTE | 2019-07-11 20:20 | NUR ---
K-PAD APPLIED TO RIGHT ARM PER ORDER.
--- NOTE | 2019-07-11 22:07 | NUR ---
NOTIFIED DR. BUCHANAN THAT RNS WERE UNABLE TO ESTABLISH IV ACCESS.
--- NOTE | 2019-07-11 23:25 | NUR ---
DR. DEL CID IN WITH ULTRASOUND TO SEE ABOUT AN IV SITE. UNABLE TO PLACE IV SITE AT THIS TIME.
[2019-07-12] VITALS (9 sets, daily range): BP systolic 97–151; BP diastolic 51–86
--- NOTE | 2019-07-12 00:14 | NUR ---
24 HR chart check completed.
--- NOTE | 2019-07-12 06:02 | NUR ---
OSCAR ORRDAJA [id number] Please refer to the physician's history and physical for past medical history, comorbid conditions, and allergies. Diagnosis: PEG TUBE MALFUNCTION Willard Score: 11,HIGH RISK WOUND DESCRIPTIONS: Wound Number: 1 Location of the wound: around peg site Thickness: Partial Size: 7.5cm x 9.0cm x 0.1cm Tunneling: none Undermining: none Sinus Tract: none Presence of Exudate: Sanguineous Amount: Light Color: Red Odor: None Periwound Skin Appearance: Erythema Wound edges: approximated Pain (associated with wound): none at time of assessment How does patient state this happened? pt unable to state how this happened Surface the patient is resting on: Isoflex SKIN PREVENTION RECOMMENDATION: 1. Pressure redistribution support surface as appropriate 2. Elevate heels 3. Remove boots/TEDS every shift and reapply 4. Head of bed 30 degrees as tolerated 5. Assess nutrition and hydration 6. Manage moisture 7. Avoid the use of containment devices while in bed 8. Use absorptive products on surfaces limit layers of linens on bed 9. Turn and reposition every 1-2 hours in bed and every 1 hour in chair as tolerated 10. Weight shifts every 15 minutes while up in chair 11. Offloading with pillows or device to keep heels elevated off bed 12. Monitor skin at least every shift 13. Inspect under medical devices twice a day WOUND TREATMENT RECOMMENDATIONS: Cleanse around peg tube site with nss and apply bactroban ointment tid and cover with drain sponge.
[2019-07-12 06:11] LABS: ALBUMIN 4.2 gm/dl (3.1-4.5); ALKALINE PHOSPHATASE 106 U/L (45-117); BUN 16 mg/dl (7-24); CHLORIDE 105 mmol/L (98-107); CREATININE 0.47 mg/dL (0.70-1.30); PHOSPHOROUS 3.5 mg/dL (2.5-4.9); POTASSIUM 4.5 mmol/L (3.5-5.1); SGOT/AST 41 IU/L (3-35); SGPT/ALT 75 U/L (12-78); SODIUM 140 mmol/L (136-145); TOTAL PROTEIN 8.6 gm/dL (6.4-8.2)
[2019-07-12 06:39] LABS: BASO % 0.5 % (0.0-1.0); EOS # 0.1 10*3/uL (0.0-0.4); EOS % 1.1 % (1.0-4.0); HEMATOCRIT 49.9 % (42.0-52.0); HEMOGLOBIN 15.8 g/dl (14.0-18.0); LYMPH # 2.5 10*3/uL (1.3-4.4); LYMPH % 28.6 % (27.0-41.0); MEAN CELL VOLUME 89.7 fl (80.0-94.0); MEAN CORPUSCULAR HGB 28.4 pg (27.0-31.0); MEAN CORPUSCULAR HGB CONC 31.7 g/dl (33.0-37.0); MEAN PLATELET VOLUME 10.4 fl (9.6-12.3); MONO # 0.6 10*3/uL (0.1-1.0); MONO % 6.7 % (3.0-9.0); NEUT # 5.4 10*3/uL (2.3-7.9); NEUT % 62.2 % (47.0-73.0); PLATELET COUNT AUTOMATED 285 10*3/uL (130-400); RED BLOOD COUNT 5.56 10*6/uL (4.50-5.90); RED CELL DISTRI WIDTH 15.7 % (0-14.5); WHITE BLOOD COUNT 8.7 10*3/uL (4.8-10.8)
--- NOTE | 2019-07-12 08:38 | NUR ---
OFF FLOOR FOR SURGERY.
--- NOTE | 2019-07-12 11:41 | NUR ---
NURSE TO NURSE REPORT REC'D FROM OR.
--- NOTE | 2019-07-12 12:03 | NUR ---
BACK TO FLOOR FROM SURGERY
--- NOTE | 2019-07-12 12:04 | NUR ---
Aircraft Pneudraulics Repairer in to talk to patient. Patient states lives at home with mom. There are no steps in the home. Physician: rory tapia [facility]acy: [facility] Home health services: none at present Patient's level of ADLs: BEDFAST Patient has working utilities: all working DME: hospital bed, wheelchair Follow-up physician's appointment after d/c: will be made by hospitalist nurse director upon discharge Does patient want to access PORTAL?: no Discharge plan discussed with patient's mom, mom stated he lives at home with her and she is his caregiver, he has a hospital bed and wheelchair at home, he had [facility] aids in the past but they have discontinued their services, mom stated his home health care case manager stated they could not find a home health that would accept patient, mom stated she was able to care for patient and didn't feel she needed any home health at this time, case management will follow. REED MOLINA
--- NOTE | 2019-07-12 14:13 | NUR ---
Nutritional Support Services Note: Pt with peg tube malfunction. Replanced this am. TF as ordered Glucerna 1.0 at 40cc /hr is appropriate and should be maintained. Wt is stable. BS are stable. Will follow if needed. Mother has no questions or concerns at this time. Bridgette Stewart Rdn Ld
--- NOTE | 2019-07-12 15:01 | NUR ---
ORDER FOR BACITRACIN DISCONTINUED DUE TO NEW ORDER FOR ZINC OXIDE GIVEN BY . SEE OCT.
--- NOTE | 2019-07-12 15:18 | NUR ---
PEG TUBE FEEDINGS ESTABLISHED. OK TO D/C FLUIDS PER . SEE MAR.
--- NOTE | 2019-07-12 15:59 | NUR ---
WOUND CARE COMPLETED
--- NOTE | 2019-07-12 16:04 | NUR ---
PULLED IV SITE OUT. DRESSIGN TO SITE APPLIED. SMALL AMOUNT OF BLOOD NOTED. NO DISTRESS NOTED. TOLERATING TUBE FEED WELL.
--- NOTE | 2019-07-12 19:30 | NUR ---
24 HOUR CHART CHECK COMPLETE
--- NOTE | 2019-07-12 20:50 | NUR ---
PATIENT ASSESSMENT COMPLETE AT THIS TIME WITHOUT INCIDENT. MOTHER AT BEDSIDE. PEG TUBE RESIDULE ZERO AT THIS TIME, TUBE FEED INFUSING WITHOUT INCIDENT. MEDICATIONS GIVEN VIA PEG TUBE WITHOUT INCIDENT AND FLUSHED WITH 100CC OF WATER. ZINC CREAM APPLIED AROUND PEG SITE ORDERED. CALL LIGHT WITHIN MOTHERS REACH, WILL CONTINUE TO MONITOR.
[2019-07-13] VITALS: BP 102/67
--- NOTE | 2019-07-13 00:20 | NUR ---
PATIENT RESTING IN BED AFTER BEING REPOSITIONED FOR COMFORT AND CHANGED FOR INCONTINENCE. NO SIGNS OF DISTRESS NOTED, RESPIRAITONS EASY AND NON-LABORED AT THIS TIME. MOTHER SLEEPING IN RECLINER AT BEDSIDE, CALL LIGHT WITHIN HER REACH, WILL CONTINUE TO MONITOR.
--- NOTE | 2019-07-13 04:05 | NUR ---
PATIENT RESTING IN BED AFTER BEING REPOSITIONED FOR COMFORT AND CHECKED FOR INCONTINENCE, NO SIGNS OF DISTRESS NOTED AT THIS TIME, RESPIRATION EASY AND NON-LABORED AT THIS TIME. MOTHER SLEEPING IN RECLINER AT BEDSIDE, CALL LIGHT WITHIN HER REACH, WILL CONTINUE TO MONITOR.
[2019-07-13 08:00] VITALS: BP 129/75
[2019-07-13] MEDS ORDERED: ZINC OXIDE OINT1 OZ T (09:12)
--- NOTE | 2019-07-13 10:08 | NUR ---
MOTHER IS RERFUING PICS OF PEG SITE FOR DISCHARGE. STATES IT IS COVERED AND FIXED. THERE IS NO REASON TO PHOTO AND MEASURE IT AGAIN.
--- NOTE | 2019-07-13 10:27 | NUR ---
Discharge instructions reviewed with patient/family. Patient receptive and verbalizes understanding. Follow-up care arranged. Written instructions given to patient/family. OSBALDO ARAON
== END 2019-07-13 10:27 | disposition home or self-care (01) | DRG 252 ==
LOC: ED 12:54 → EDHOLD 13:18 → 4E 13:18
PROVIDERS: Internal Medicine; Physician Assistant; ADMIT Internal Medicine
PROC: 0D20XUZ Change Feeding Device in Upper Intestinal Tract, External Approach (ICD-10-PCS; principal; 2019-07-12)
DX: K94.23 Gastrostomy malfunction (principal); K94.22 Gastrostomy infection; R74.0 Nonspecific elevation of levels of transaminase and lactic acid dehydrogenase [LDH]; G80.9 Cerebral palsy, unspecified; K76.0 Fatty (change of) liver, not elsewhere classified; E11.9 Type 2 diabetes mellitus without complications; K21.9 Gastro-esophageal reflux disease without esophagitis; K29.70 Gastritis, unspecified, without bleeding; I10 Essential (primary) hypertension; L03.311 Cellulitis of abdominal wall; Y83.3 Surgical operation with formation of external stoma as the cause of abnormal reaction of the patient, or of later complication, without mention of misadventure at the time of the procedure; Y92.89 Other specified places as the place of occurrence of the external cause; Z88.5 Allergy status to narcotic agent; Z82.49 Family history of ischemic heart disease and other diseases of the circulatory system; Z79.899 Other long term (current) drug therapy; Z74.01 Bed confinement status

== ENCOUNTER 2020-02-28 19:28 | Emergency (ER) | payer MEDICAID ==
[2020-02-28 19:32] VITALS: BP 102/82
[2020-02-29] MEDS ORDERED: ANTIFUNGAL113 GM T (17:21)
== END 2020-02-28 20:30 | disposition home or self-care (01) ==
LOC: ED 19:28
DX: K94.29 Other complications of gastrostomy (principal); Z79.899 Other long term (current) drug therapy

== ENCOUNTER 2020-02-29 16:09 | Emergency (ER) | payer MEDICAID ==
[~2020-02-29] VITALS: Wt 40.4 kg
[2020-02-29 16:34] VITALS: BP 148/89
[2020-02-29] MEDS ORDERED: ANTIFUNGAL113 GM T (17:21)
== END 2020-02-29 19:00 | disposition home or self-care (01) ==
LOC: ED 16:09
DX: K94.23 Gastrostomy malfunction (principal); K21.9 Gastro-esophageal reflux disease without esophagitis; I10 Essential (primary) hypertension; Z88.5 Allergy status to narcotic agent; Z79.899 Other long term (current) drug therapy; Y83.8 Other surgical procedures as the cause of abnormal reaction of the patient, or of later complication, without mention of misadventure at the time of the procedure

== ENCOUNTER → 2020-04-06 | Day surgery (SDC) | payer MEDICAID ==
[~2020-04-06] VITALS: Ht 170.1 cm; Wt 38.7 kg
[~2020-04-06] MED LIST changes: +ACETAMINOP650 MG/201 PO; +ANTIFUNGAL113 GM T; +BISACODYL10 MG R; +HUMALOG100 UNIT/1 SC; +Humalog SQ; +LANTUS SOL100 UNIT/1 SC; +Lovenox40 MG/0.4 SQ; +NUTRILYTE 20 ML20 ML IV; +NYST SUSP PO; +ONDANSETRON4 MG/2 ML IV; +Peridex 473 ML473 ML PO; +VANCOMYCIN750 MG/151 IV; +ZOSYN 4.54.5 GM/100 IV; +[UNRECOGNIZED DRUG - CODE] IV; +[UNRECOGNIZED DRUG - OTHER] IV
[2020-04-06 08:07] VITALS: BP 128/91
[2020-04-06 10:49] VITALS: BP 135/82
[2020-04-06 11:04] VITALS: BP 131/90
[2020-04-06 11:19] VITALS: BP 133/90
--- NOTE | 2020-04-15 08:24 | NUR ---
LATE ENTRY FOR 04-06-20. IV FLUIDS DISCONTINUED @ 1100.
== END | disposition home or self-care (01) ==
LOC: SDC 04-02 12:30
DX: K94.23 Gastrostomy malfunction (principal); L03.311 Cellulitis of abdominal wall; Z98.890 Other specified postprocedural states; Z79.899 Other long term (current) drug therapy; Z88.0 Allergy status to penicillin; Z82.49 Family history of ischemic heart disease and other diseases of the circulatory system

== ENCOUNTER 2020-10-02 17:14 | Emergency (ER) | payer MEDICAID ==
[~2020-10-02 17:14] MED LIST changes: +DULCOLAX10 M1 R; +K2 PLUS D3 TAB1 EACH PO; +TOPROL XL25 MG PO; +VANCOMYCIN750 MG/152 IV
[2020-10-02 18:25] LABS: BASO # 0.1 10*3/uL (0.0-0.1); BASO % 0.6 % (0.0-1.0); EOS % 0.5 % (1.0-4.0); HEMATOCRIT 51.9 % (42.0-52.0); LYMPH # 2.2 10*3/uL (1.3-4.4); LYMPH % 27.6 % (27.0-41.0); MEAN CORPUSCULAR HGB 26.2 pg (27.0-31.0); MEAN CORPUSCULAR HGB CONC 28.5 g/dl (33.0-37.0); MEAN PLATELET VOLUME 11.3 fl (9.6-12.3); MONO # 0.7 10*3/uL (0.1-1.0); NEUT % 61.6 % (47.0-73.0); PLATELET COUNT AUTOMATED 282 10*3/uL (130-400); RED BLOOD COUNT 5.64 10*6/uL (4.50-5.90); RED CELL DISTRI WIDTH 20.1 % (0-14.5); WHITE BLOOD COUNT 8.1 10*3/uL (4.8-10.8)
[2020-10-02 18:39] LABS: ACT PARTIAL THROMBO TIME 20.2 SECONDS (20.0-32.1)
[2020-10-02 18:44] LABS: ALBUMIN 3.7 gm/dl (3.1-4.5); ALKALINE PHOSPHATASE 142 U/L (45-117); BUN 55 mg/dl (7-24); CHLORIDE 107 mmol/L (98-107); CREATININE 0.82 mg/dL (0.70-1.30); POTASSIUM 4.3 mmol/L (3.5-5.1); SGOT/AST 16 IU/L (3-35); SGPT/ALT 70 U/L (12-78); SODIUM 145 mmol/L (136-145); TOTAL PROTEIN 8.2 gm/dL (6.4-8.2)
[2020-10-02 18:51] VITALS: BP 100/67
[2020-10-02 18:52] LABS: BILIRUBIN Negative (Negative); BLOOD 3+ (Negative); CLARITY Cloudy (Clear); COLOR Dark Yellow (Yellow); GLUCOSE Negative (Negative); KETONE Trace (Negative); LEUKO ESTERASE Negative (Negative); NITRITE Negative (Negative); SPECIFIC GRAVITY >= 1.030 (1.001-1.030)
[2020-10-02 18:58] LABS: WBC 0-2 wbc/hpf (0-5)
[2020-10-02 18:59] LABS: BACTERIA 2+; MUCOUS TRACE
[2020-10-02] MEDS ORDERED: MACROBID100 M1 PO (22:11)
== END 2020-10-02 23:10 | disposition home or self-care (01) ==
LOC: ED 17:14
PROVIDERS: Nurse Practitioner Family
DX: N39.0 Urinary tract infection, site not specified (principal); R73.9 Hyperglycemia, unspecified; Z93.1 Gastrostomy status; Z88.5 Allergy status to narcotic agent; Z79.899 Other long term (current) drug therapy; Z79.4 Long term (current) use of insulin; Z98.890 Other specified postprocedural states